=== PATIENT | male | born 1970 | race Caucasian/White ===

== ENCOUNTER 2016-10-04 08:36 | Emergency (ER) | payer BC ==
[2016-10-04 08:50] VITALS: BP 125/86
--- NOTE | 2016-10-04 09:30 | UC ---
Skin Complaint HPI - HPI Summary HPI Summary: rash on the legs for the last week or so and then hives began around the beltline in the last few days. son had almost identicial reaction. No fever, swelling of the lips or wheezing. - History of Current Complaint Chief Complaint: UCRas Time Seen by Provider: 10/04/16 09:15 Stated Complaint: RASH Onset/Duration: Gradual Onset Skin Exposure Onset/Duration: Weeks Ago Timing: Constant Onset Severity: Moderate Current Severity: Moderate Location: Diffuse Character: Swelling, Pruritus, Hives Aggravating: Clothing, Wet Conditions, Touch Alleviating: Nothing Associated Signs & Symptoms: Negative: Nausea, Vomiting, Numbness, Diaphoresis, Weakness, Shivering, Fever, Chills, Cough, Wheezing, Chest Pain, Throat Tightening, Drainage, Bruising, Tenderness - Allergy/Home Medications Allergies/Adverse Reactions: Allergies Allergy/AdvReac Type Severity Reaction Status Date / Time Penicillins Allergy Unknown Unknown Verified 10/04/16 08:42 Reaction Details Review of Systems Skin: Rash All Other Systems Reviewed And Are Negative: Yes PMH/Surg Hx/FS Hx/Imm Hx Previously Healthy: No - no related eczyma. - Surgical History Surgical History: Yes Surgery Procedure, Year, and Place: ACL RIGHT KNEE, RIGHT HAND,LEFT ARM,HERNIA - Family History Known Family History: Positive: Other - son had similar hives. - Social History Alcohol Use: Weekly Substance Use Type: None Smoking Status (MU): Never Smoked Tobacco Physical Exam Triage Information Reviewed: Yes Appearance: Well-Appearing, No Pain Distress, Well-Nourished Vital Signs: Initial Vital Signs Temp 97.9 F 10/04/16 08:42 Pulse 65 10/04/16 08:42 Resp 16 10/04/16 08:42 BP 125/86 10/04/16 08:42 Pulse Ox 100 10/04/16 08:42 Vital Signs Reviewed: Yes Eye Exam: Normal ENT Exam: Normal Neck exam: Normal Respiratory Exam: Normal Cardiovascular Exam: Normal Abdominal Exam: Normal Musculoskeletal Exam: Normal Neurological Exam: Normal Psychological Exam: Normal Skin Exam: Other - small scatterred macular papular. on the legs. there are hives anterior belt line. Course/Dx - Differential Diagnoses - Skin Complaint Differential Diagnoses: Abscess, Anaphylaxis, Angioedema, Cellulitis, Contact Dermatitis, Drug Rash, Drug Intoxication, Eczema, Erythema Nodosum, Erythema Multiforme, Ac-Guido Syndrome, Systemic Illness, Tick Born Illness, Tinea , Urticaria, Varicella Zoster, Viral Exanthem - Diagnoses Provider Diagnoses: hives. rhus dermatitis. Discharge - Discharge Plan Condition: Good Disposition: HOME Prescriptions: Triamcinolone 0.5% OINT * 1 applic TOPICAL BID #15 tube hydrOXYzine HCL TAB* [Atarax 25 MG TAB*] 25 mg PO TID PRN #10 tab PRN Reason: Itching predniSONE TAB* [Deltasone TAB*] 20 mg PO DAILY #20 tab Patient Education Materials: Dermatitis (ED)
== END 2016-10-04 09:34 | disposition home or self-care (01) ==
LOC: UCCORT 08:36
DX: L25.5 Unspecified contact dermatitis due to plants, except food (principal); Z88.0 Allergy status to penicillin
CPT/HCPCS: 99212; G0463

== ENCOUNTER 2017-08-21 10:02 | Emergency (ER) | payer BC ==
[2017-08-21 10:37] VITALS: BP 137/79
--- NOTE | 2017-08-21 10:58 | UC ---
Ear Complaint HPI - HPI Summary HPI Summary: hearing loss right ear x 3 weeks no ear pain , no discharge, no cold sx - History of Current Complaint Chief Complaint: UCEar Stated Complaint: RIGHT EAR COMPLAINT Time Seen by Provider: 08/21/17 10:35 Hx Obtained From: Patient Onset/Duration: Gradual Onset, Lasting Weeks - 3, Still Present Severity Initially: Moderate Severity Currently: Moderate Pain Intensity: 0 Aggravating Factors: Nothing Alleviating Factors: Nothing Associated Signs/Symptoms: Positive: Hearing Loss - right ear. Negative: Discharge, Foreign Body Sensation, Trauma to Ear, Swelling @, URI Symptoms - Allergies/Home Medications Allergies/Adverse Reactions: Allergies Allergy/AdvReac Type Severity Reaction Status Date / Time Penicillins Allergy Unknown Verified 08/21/17 10:37 Reaction Details Home Medications: Home Medications Neomycin/Polymyxin B/Hydrocort [[id number] Ear Susp] 3 drop OT Q8HR PRN 08/21/17 [History Confirmed 08/21/17] PMH/Surg Hx/FS Hx/Imm Hx Previously Healthy: Yes - Surgical History Surgical History: Yes Surgery Procedure, Year, and Place: ACL RIGHT KNEE, RIGHT HAND,LEFT ARM,HERNIA - Family History Known Family History: Positive: Other - son had similar hives. Negative: Diabetes - Social History Alcohol Use: Occasionally Substance Use Type: None Smoking Status (MU): Never Smoked Tobacco Review of Systems Constitutional: Negative Skin: Negative Eyes: Negative ENT: Negative Respiratory: Negative Is Patient Immunocompromised?: No All Other Systems Reviewed And Are Negative: Yes Physical Exam Triage Information Reviewed: Yes Appearance: Well-Appearing, No Pain Distress, Well-Nourished Vital Signs: Initial Vital Signs Temp 99.2 F 08/21/17 10:32 Pulse 76 08/21/17 10:32 Resp 13 08/21/17 10:32 BP 137/79 08/21/17 10:32 Pulse Ox 100 08/21/17 10:32 Vital Signs Reviewed: Yes Eyes: Positive: Conjunctiva Clear ENT: Positive: Normal ENT inspection, Pharynx normal, TMs normal. Negative: TM bulging, TM dull, TM red, Tonsillar swelling, Tonsillar exudate Neck: Positive: Supple, Nontender, No Lymphadenopathy Respiratory: Positive: Chest non-tender, Lungs clear, Normal breath sounds Cardiovascular: Positive: RRR, No Murmur, Pulses Normal Skin Exam: Normal Ear Complaint Course/Dx - Differential Dx/Diagnosis Provider Diagnoses: eustachian tube dysfunction right side Discharge - Sign-Out/Discharge Documenting (check all that apply): Discharge/Admit/Transfer - Discharge Plan Condition: Stable Disposition: HOME Patient Education Materials: Hearing Loss (ED) Referrals: No Primary Care Phys,NOPCP [Primary Care Provider] - 7 Days Additional Instructions: Eustachian tube dysfunction may use Flonas otc nasal spray , 2 stray each nostril daily follow up with your pcp in 7 days if not better - Billing Disposition and Condition Condition: STABLE Disposition: Home
== END 2017-08-21 11:05 | disposition home or self-care (01) ==
LOC: UCCORT 10:02
DX: H69.81 Other specified disorders of Eustachian tube, right ear (principal); Z88.0 Allergy status to penicillin
CPT/HCPCS: 99211; G0463